=== PATIENT | female | born 1955 | race Caucasian/White ===

== ENCOUNTER → 2017-09-03 | Outpatient (CLI) | payer OTHER ==
[2014-10-11 08:38] VITALS: BP 158/84
[~2017-09-03] MED LIST: ALEVE220 MG PO; BENICAR40 MG PO
== END ==
LOC: MAMMO 09:23
DX: Z12.31 Encounter for screening mammogram for malignant neoplasm of breast (principal)
CPT/HCPCS: G0202

== ENCOUNTER → 2021-12-19 | Outpatient (CLI) | payer MEDICARE | LOC: MAMMO 09:59 | DX: Z12.31 Encounter for screening mammogram for malignant neoplasm of breast (principal) ==

== ENCOUNTER → 2021-12-19 | Outpatient (CLI) | payer MEDICARE | LOC: MAMMO 10:04 | DX: Z13.820 Encounter for screening for osteoporosis (principal); Z12.31 Encounter for screening mammogram for malignant neoplasm of breast; M85.88 Other specified disorders of bone density and structure, other site ==

== ENCOUNTER → 2024-12-15 | Outpatient (CLI) | payer MEDICARE | LOC: MAMMO 08:26 | DX: Z12.31 Encounter for screening mammogram for malignant neoplasm of breast (principal) ==

== ENCOUNTER → 2024-12-15 | Outpatient (CLI) | payer MEDICARE | LOC: MAMMO 08:36 | DX: M85.80 Other specified disorders of bone density and structure, unspecified site (principal); Z78.0 Asymptomatic menopausal state ==